=== PATIENT | male | born 1955 ===

== ENCOUNTER 2020-04-14 08:40 | Inpatient (IN) | payer OTHER ==
[~2020-04-14] VITALS: Ht 167.6 cm; Wt 70.1 kg
[2020-04-14] MEDS ORDERED: TAMSULOSIN HCL0.4 M1 PO (09:15)
[2020-04-14] MEDS ORDERED: ACTOS30 MG PO (09:15)
[2020-04-14] MEDS ORDERED: FINASTERIDE TP (09:15)
[2020-04-14] MEDS ORDERED: ZOLOFT25 MG PO (09:16)
[2020-04-14] MEDS ORDERED: Simvastatin20 MG PO (09:16)
[2020-04-14] MEDS ORDERED: LEVEMIR FL100 UNIT/1 SC (09:16)
[2020-04-14] MEDS ORDERED: SITA100T2 PO (09:16)
[2020-04-14 09:18] LABS: Hematocrit 39.9 % (37.0-53.0); Hemoglobin 13.1 g/dL (13.5-17.5); Mean Corpuscular HGB 28.2 pg (26.0-34.0); Mean Corpuscular HGB Conc 32.8 g/dL (31.5-36.5); Mean Corpuscular Volume 86 fL (80-100); Mean Platelet Volume 10.9 fL (9.1-12.4); Platelet Count 254 K/mm3 (150-400); RDW Coefficient Variation 13.1 % (11.7-14.2); RDW Standard Deviation 40.9 fL (35.1-46.3); Red Blood Cell Count 4.64 M/mm3 (4.30-5.90); White Blood Cell Count 11.33 K/mm3 (4.00-11.30)
[2020-04-14 09:42] LABS: Alanine Aminotransfer (ALT/SGP 33 U/L (12-78); Albumin, Blood 3.6 g/dL (3.4-5.0); Albumin/Globulin Ratio 1.1 (0.8-1.8); Alk Phos 71 U/L (50-136); Anion Gap 5 mmol/L (6-16); Aspartate Aminotrans (AST/SGOT 21 U/L (12-37); Bilirubin, Total 0.3 mg/dL (0.1-1.0); Blood Urea Nitrogen 14 mg/dL (8-24); Bun/Creatinine Ratio 18.2 (12.0-20.0); CO2, Blood 27 mmol/L (21-32); Calcium, Blood 8.5 mg/dL (8.5-10.1); Chloride, Blood 103 mmol/L (98-108); Cholesterol 115 mg/dL (50-200); Creatinine, Blood 0.77 mg/dL (0.60-1.20); Globulin, Blood 3.2 g/dL (2.2-4.0); Glomerular Filtration Rate >60 (60-); Glucose, Blood 272 mg/dL (70-99); HDL Cholesterol 38 mg/dL (>39); LDL/HDL RATIO 1.7; Low Density Lipoprotein Chol 64 mg/dL (0-110); Magnesium, Blood 1.9 mg/dL (1.6-2.4); Potassium, Blood 3.8 mmol/L (3.5-5.5); Sodium, Blood 135 mmol/L (136-145); Total Protein, Blood 6.8 g/dL (6.4-8.2); Triglycerides 64 mg/dL (30-160); Troponin I 0.035 ng/mL (0.000-0.040); Very Low Density Lipoprot Chol 12 mg/dL (6-32)
--- NOTE | 2020-04-14 10:25 | NUR ---
REPORT REPORT CALLED TO HARRIS REYES AT [facility]. ALL QUESTIONS ANSWERED. [facility] TO CALL BACK WHEN ROOM IS CLEAN AND READY TO TRANSFER PT.
--- NOTE | 2020-04-14 11:21 | NUR ---
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 PT IS AWAKE, ALERT, AND ORIENTED. PT DENIES PAIN OR DISCOMFORT. VITAL SIGNS STABLE, PT ON ROOM AIR. TR BAND IN PLACE TO RIGHT RADIAL SITE, NO OOZING OR HEMATOMA NOTED. DISTAL PULSES PRESENT. BILATE 18G IV'S SALINE LOCKED. DR POWELL CALLED AND UPDATED TO PLAN OF CARE AND PLAN FOR TRANSFER TO [facility]. PT DAUGHTER VIANEY CALLED AND UPDATED. WILL CONTINUE TO MONITOR.
[2020-04-14 12:17] LABS: International Normalized Ratio 1.12; Prothrombin Time Results 11.9 Sec (9.7-11.5)
--- NOTE | 2020-04-14 13:24 | NUR ---
TRANSFER TO [facility] REPORT GIVEN TO [facility] BRANCH EXAMINER AT BEDSIDE. PT BELONGINGS SENT HOME WITH FAMILY MEMBERS. ALL QUESTIONS ANSWERED. PT LEFT VIA EMS GURNEY AT 1310
== END 2020-04-14 13:10 | disposition short-term general hospital (02) | DRG 251 ==
LOC: ER 08:40 → ICUW 09:00
PROVIDERS: Emergency Medicine; ADMIT Internal Medicine Interventional Cardiology
PROC: 4A023N7 Measurement of Cardiac Sampling and Pressure, Left Heart, Percutaneous Approach (ICD-10-PCS; principal; 2020-04-14)
PROC: 02703ZZ Dilation of Coronary Artery, One Artery, Percutaneous Approach (ICD-10-PCS; 2020-04-14)
PROC: B2111ZZ Fluoroscopy of Multiple Coronary Arteries using Low Osmolar Contrast (ICD-10-PCS; 2020-04-14)
PROC: B2151ZZ Fluoroscopy of Left Heart using Low Osmolar Contrast (ICD-10-PCS; 2020-04-14)
DX: I21.11 ST elevation (STEMI) myocardial infarction involving right coronary artery (principal); Z79.4 Long term (current) use of insulin; E11.9 Type 2 diabetes mellitus without complications
CPT/HCPCS: 36415; 76937; 80053; 80061; 82947; 83735; 84484; 85027; 85347; 85610; 85730; 86850; 86900; 86901; 92941; 93005; 93010; 93306; 93458; 96374; 99152; 99153; 99285-25; A9270-GY; C1725; C1769; C1887; C1894; J0461; J1644; J2250; J3010; J7030; J7050; Q9967

== ENCOUNTER 2025-09-26 19:06 | Emergency (ER) | payer OTHER ==
[~2025-09-26] VITALS: Ht 175.3 cm; Wt 90.7 kg
[~2025-09-26 19:06] MED LIST: ACTOS30 MG PO; FINASTERIDE TP; LEVEMIR FL100 UNIT/1 SC; SITA100T2 PO; Simvastatin20 MG PO; TAMSULOSIN HCL0.4 M1 PO; ZOLOFT25 MG PO
[2025-09-26 19:37] LABS: BASOPHILS ABSOLUTE AUTO 0.11 K/mm3 (0.00-0.23); BASOPHILS PERCENT AUTO 1 % (0-2); EOSINOPHILS ABSOLUTE AUTO 0.45 K/mm3 (0.00-0.68); EOSINOPHILS PERCENT AUTO 4 % (0-6); Hematocrit 35.9 % (37.0-53.0); Hemoglobin 12.4 g/dL (13.5-17.5); IMMATURE GRAN ABSOLUTE AUTO 0.31 K/mm3 (0.00-0.10); IMMATURE GRAN PERCENT AUTO 3 % (0-1); LYMPHOCYTES ABSOLUTE AUTO 5.22 K/mm3 (0.84-5.20); LYMPHOCYTES PERCENT AUTO 43 % (21-46); MONOCYTES ABSOLUTE AUTO 0.86 K/mm3 (0.16-1.47); MONOCYTES PERCENT AUTO 7 % (4-13); Mean Corpuscular HGB Conc 34.5 g/dL (31.5-36.5); Mean Corpuscular Volume 82 fL (80-100); NEUTROPHILS ABSOLUTE AUTO 5.17 K/mm3 (1.96-9.15); NEUTROPHILS PERCENT AUTO 43 % (41-73); NRBC ABSOLUTE 0.00 K/mm3 (0.00-0.02); NRBC Auto 0.0 /100 WBC (0.0-0.2); Platelet Count 254 K/mm3 (150-400); RDW Coefficient Variation 12.8 % (11.7-14.2); RDW Standard Deviation 38.5 fL (35.1-46.3)
[2025-09-26 20:03] LABS: Alanine Aminotransfer (ALT/SGP 33.0 U/L (12-78); Albumin, Blood 4.0 g/dL (3.4-5.0); Albumin/Globulin Ratio 1.3 (0.8-1.8); Anion Gap 14.0 mmol/L (3-11); Aspartate Aminotrans (AST/SGOT 25.0 U/L (12-37); Bilirubin, Total 0.3 mg/dL (0.1-1.0); Blood Urea Nitrogen 14.0 mg/dL (8-24); CO2, Blood 21.0 mmol/L (21-32); Calcium, Blood 9.7 mg/dL (8.5-10.1); Chloride, Blood 103.0 mmol/L (98-108); Creatinine, Blood 1.36 mg/dL (0.60-1.20); Globulin, Blood 3.1 g/dL (2.2-4.0); Glucose, Blood 128.0 mg/dL (70-99); Potassium, Blood 3.1 mmol/L (3.5-5.5); Sodium, Blood 135.0 mmol/L (136-145); Total Protein, Blood 7.1 g/dL (6.4-8.2)
[2025-09-26 22:00] VITALS: BP 159/52
== END 2025-09-26 22:51 ==
LOC: ER 19:06
PROVIDERS: Student in an Organized Health Care Education/Training Program
DX: R56.9 Unspecified convulsions (principal); E11.649 Type 2 diabetes mellitus with hypoglycemia without coma; Z79.4 Long term (current) use of insulin; Z79.899 Other long term (current) drug therapy
CPT/HCPCS: 70450; 80053; 82947; 83690; 84484; 85025; 93005; 93010; 99285-25; A9270